=== PATIENT | male | born 1960 | race Caucasian/White ===

== ENCOUNTER 2023-03-21 16:30 | Outpatient (OUT) | payer OTHER, SELFPAY ==
--- NOTE | 2023-03-21 | XR_ITS ---
The [address] [address] Patient Name: ANA POTTER MRN: [id number] date: 1960 Sex: M Assigned Patient Location: LAB Current Patient Location: Accession/Order Number: [id number] Exam Date: 03/21/2023 17:15 Report Date: 03/22/2023 02:23 At the request of: SHAIKH FAUSTINA Procedure: XR foot RT min 3V PROCEDURE: XR foot RT min 3V HISTORY: M79.67 ; chronic lateral right foot pain, lump COMPARISON: None. FINDINGS: BONES:Transverse fracture through base of 5th metatarsal with 3 mm separation. Mild callus formation along the lateral margin. SOFT TISSUES:No visible soft tissue swelling. EFFUSION:None visible. OTHER: Negative. XR/XR foot RT min 3V IMPRESSION: 1. Acute versus subacute minimally displaced base of 5th metatarsal fracture. Electronically authenticated by: FELIPA SANTIAGO Date: 03/22/2023 02:23
[2023-03-21 17:09] LABS: Percent Iron Saturation 24.4 %
[2023-03-21 17:23] LABS: Prostate Specific Antigen Dx 3.98 ng/mL (<=4.00)
[2023-03-23 08:15] LABS: Transferrin 246 mg/dL (177-329)
== END 2023-03-21 16:31 | disposition home or self-care (01) ==
LOC: LAB 16:30
PROVIDERS: PCP Internal Medicine; Visit Provider Internal Medicine
DX: M79.671 Pain in right foot (principal); R97.20 Elevated prostate specific antigen [PSA]; S92.351A Displaced fracture of fifth metatarsal bone, right foot, initial encounter for closed fracture
CPT/HCPCS: 36415; 73630; 82607; 82728; 83540; 83550; 84153; 84466

== ENCOUNTER 2023-04-08 10:37 | Outpatient (OUT) | payer OTHER, SELFPAY ==
--- NOTE | 2023-04-08 | ECG_ITS ---
The [facility] Test Date: 2023-04-08 Pat Name: ANA POTTER Department: Room: - Gender: Male [employer]inery [employer] Out: : 1960 Requested By: IRIS PRINCE Order Number: [id number] Reading MD: JOSE C MARIEE Measurements Intervals [place] Rate: 108 P: 59 IA: 175 QRS: 43 QRSD: 94 T: 51 QT: 336 QTc: 452 Interpretive Statements SINUS TACHYCARDIA LOW QRS VOLTAGE IN PRECORDIAL LEADS [QRS DEFLECTION < 1.0 mV IN CHEST LEADS] NONSPECIFIC T-WAVE ABNORMALITY ABNORMAL RHYTHM ECG No previous ECG available for comparison Electronically Signed On 04-11-2023 17:25:40 EST by JOSE C MARIEE
--- OUTSIDE RECORDS SUMMARY | 2023-04-08 10:40 | XMS_ITS | CCD ---
Author Name Unknown Address [id number] [place] [address] Organization [facility] Care Team Providers Care Medical Technicians Name Role Phone MEAGAN HOLLAND Attending Unavailable GIULIANO, MEAGAN Referring Unavailable GIULIANO, MEAGAN Attending Unavailable GIULIANO, MEAGAN Referring Unavailable Angelia Barajas Unavailable [place], DR PRADO Consulting Unavailable [place], DR PRADO Primary Care Unavailable [place]AM[place], DR PRADO Admitting Unavailable [place], DR PRADO Attending Unavailable [facility], DR FELIPA Quinones Consulting Unavailable [place], DR PRADO Primary Care Unavailable [place], DR PRADO Admitting Unavailable [facility], DR SANJAY Millan Consulting Unavailable [place], DR PRADO Attending Unavailable [place], DR PRADO Consulting Unavailable [place], DR PRADO Primary Care Unavailable [place], DR PRADO Admitting Unavailable [place], DR PRADO Attending Unavailable [place], DR PRADO Consulting Unavailable SHAIKH WEEMS Attending Unavailable IRIS PRINCE Attending Unavailable IRIS PRINCE Referring Unavailable Problems Active Problems Problem Classification Problem Date Documented Da te Episodic/Chronic Diabetes mellitus without complication (1 source) Type 2 diabetes mellitus without complications; Translations: [TYPE 2 DM WITHOUT COMPLICATIONS] Onset: 04-08-2022 Chronic Genitourinary symptoms and ill-defined conditions (1 source) Frequency of micturition; Translations: [Frequency of micturition] Onset: 04-19-2018 Episodic Hyperplasia of prostate (1 source) Benign prostatic hyperplasia without lower urinary tract symptoms; Translations: [Benign prostatic hyperplasia without lower urinary tract symptoms] Onset: 04-19-2018 Chronic Other connective tissue disease (4 sources) Pain in left lower leg; Translations: [PAIN IN LEFT LOWER LEG] Onset: 03-22-2022 Episodic Other injuries and conditions due to external causes (1 source) Other injury of unspecified body region, initial encounter; Translations: [OTHER INJURY UNS BODY REGION INIT] Onset: 03-13-2022 Episodic Other non-traumatic joint disorders (1 source) Pain in left knee; Translations: [PAIN IN LEFT KNEE] Onset: 04-08-2022 Episodic Other non-traumatic joint disorders (1 source) Effusion, left knee; Translations: [EFFUSION LEFT KNEE] Onset: 04-08-2022 Episodic Other screening for suspected conditions (not mental disorders or infectious disease) (1 source) Elevated prostate specific antigen [PSA]; Translations: [Elevated prostate specific antigen (PSA)] Onset: 04-19-2018 Phlebitis; thrombophlebitis and thromboembolism (1 source) Embolism and thrombosis of superficial veins of left lower extremity; Translations: [EMBOLISM AND THROMB SUP VEINS LLE] Onset: 03-27-2022 Episodic Past or Other Problems Problem Classification Problem Date Documented Da te Episodic/Chronic Immunizations and screening for infectious disease (1 source) Contact with and (suspected) exposure to other viral communicable diseases Onset: 04-14-2021 Resolved: 04-14-2021 Episodic Results Test Name Value Interpretation Reference Range Facility GLYCOHEMOGLOBIN A1Con 2021 ADA RECOMMENDATION SEE BELOW Normal [facility] Comment on above: Result Comment: ADA RECOMMENDED LIMIT 4.0 - 6.0 ADA THERAPEUTIC TARGET < 7.0 ACTION SUGGESTED > 7.0 Performed By: #### A 1C #### [facility] [address] [place] [address] Dr. Kristy Villanueva Glucose [Mass/Vol] 151 mg/dL Normal [facility] Comment on above: Performed By: #### A 1C #### [facility] [address] [address] [address] Kristy Villanueva HbA1c (Bld) [Mass fraction] 6.9 % Critically high 4.5-6.2 [facility] Comment on above: Performed By: #### A 1C #### [facility] [address] [place] [address] Dr. Kristy Villanueva US JOSE DOP LEG LTon 03-22-20 US JOSE DOP LEG LT EXAMINATION: US JOSE DOP LEG LT HISTORY: Pain of left calf COMPARISON: No relevant comparison available. TECHNIQUE: Grayscale, color and Doppler ultrasound FINDINGS: Region: Left leg Thrombus: No deep vein thrombus. Echogenic thrombus identified in the superficial proximal to mid small saphenous vein Compressibility: Partial compressibility corresponding to thrombus Flow: Normal flow in the deep vein system Augmentation: Normal augmentation. Vein system Other: Popliteal fossa collection likely representing a popliteal cyst IMPRESSION: No deep vein thrombus Nonocclusive thrombus proximal to mid superficial small saphenous vein *Exam performed in accordance with [facility] practice guidelines- Peripheral venous ultrasound, July 05, 2009. Electronically authenticated by: SANJAY STANFORD Date: 2022-03-22 11:45 Normal [facility] LYME DISEASE AB EIA W REFLEX on 03-12-2022 Lyme Total Antibody,EIA Negative Normal Negative [facility] Comment on above: Result Comment: Lyme antibodies not detected. Reflex testing is not indicated. No laboratory evidence of infection with B. burgdorferi (Lyme disease). Negative results may occur in patients recently infected (less than or equal to 14 days) with B. burgdorferi. If recent infection is suspected, repeat testing on a new sample collected in 7 to 14 days is recommended. Performed By: #### L YMA #### [facility] [address] [place] [address] Dr. Kristy Villanueva CBC AUTO DIFFon 03-10-2022 BASO # 0.1 103/ul Normal 0.0-0.1 [facility] Comment on above: Performed By: #### C BC #### [facility] [address] [place] [address] Dr. Kristy Villanueva Basophils/100 WBC (Bld) 0.6 % Normal 0.2-2.0 [facility] Comment on above: Performed By: #### C BC #### [facility] [address] [place] [address] Dr. Kirsty Villanueva EO # 0.2 103/ul Normal 0.0-0.7 [facility] Comment on above: Performed By: #### C BC #### [facility] [address] [place] [address] Dr. Kristy Villanueva Eosinophils/100 WBC (Bld) 2.4 % Normal 0.9-7.0 [facility] Comment on above: Performed By: #### C BC #### [facility] [address] [place] [address] Dr. Kristy Villanueva Erythrocyte distribution width (RBC) [Ratio] 13.1 % Normal 11.0-15.0 [facility] Comment on above: Performed By: #### C BC #### [facility] [address] [place] [address] Dr. Kristy Villanueva Hematocrit (Bld) [Volume fraction] 44.4 % Normal 42.0-54.0 [facility] Comment on above: Performed By: #### C BC #### [facility] [address] [place] [address] Dr. Kristy Villanueva Hemoglobin (Bld) [Mass/Vol] 14.6 g/dL Normal 14.0-18.0 [facility] Comment on above: Performed By: #### C BC #### [facility] [address] [place] [address] Dr. Kristy Villanueva IG # 0.04 10e3/ul Critically high 0.00-0.03 [facility] Comment on above: Performed By: #### C BC #### [facility] [address] [place] [address] Dr. Kristy Villanueva IG % 0.5 % Normal 0.0-0.5 [facility] Comment on above: Performed By: #### C BC #### [facility] [address] [place] [address] Dr. Kristy Villanueva LYMPH # 2.1 103/ul Normal 1.2-3.8 [facility] Comment on above: Performed By: #### C BC #### [facility] [address] [place] [address] Dr. Kristy Villanueva Lymphocytes/100 WBC (Bld) 26.3 % Normal 20.5-60.0 [facility] Comment on above: Performed By: #### C BC #### [facility] [address] [place] [address] Dr. Kristy Villanueva MANUAL DIFF REQ NO Normal [facility] Comment on above: Performed By: #### C BC #### [facility] [address] [place] [address] Dr. Kristy Villanueva MCH (RBC) [Entitic mass] 28.6 pg Normal 25.9-34.0 [facility] Comment on above: Performed By: #### C BC #### [facility] [address] [place] [address] Dr. Kristy Villanueva MCHC (RBC) [Mass/Vol] 32.9 g/dL Normal 29.9-35.2 [facility] Comment on above: Performed By: #### C BC #### [facility] [address] [place] [address] Dr. Kristy Villanueva MCV (RBC) [Entitic vol] 87.1 fL Normal 80.0-94.0 [facility] Comment on above: Performed By: #### C BC #### [facility] [address] [place] [address] Dr. Kristy Villanueva MONO # 0.6 103/ul Normal 0.3-0.8 [facility] Comment on above: Performed By: #### C BC #### [facility] [address] [place] [address] Dr. Kristy Villanueva Monocytes/100 WBC (Bld) 7.6 % Normal 1.7-12.0 [facility] Comment on above: Performed By: #### C BC #### [facility] [address] [place] [address] Dr. Kristy Villanueva NEUT # 5.0 103/ul Normal 1.4-6.5 [facility] Comment on above: Performed By: #### C BC #### [facility] [address] [place] [address] Dr. Kristy Villanueva Neutrophils/100 WBC (Bld) 62.6 % Normal 43.0-75.0 [facility] Comment on above: Performed By: #### C BC #### [facility] [address] [place] [address] Dr. Kristy Villanueva Platelet mean volume (Bld) [Entitic vol] 9.2 fL Critically low 9.5-13.5 [facility] Comment on above: Performed By: #### C BC #### [facility] [address] [place] [address] Dr. Kristy Villanueva PLT 347 103/ul Normal 150-450 [facility] Comment on above: Performed By: #### C BC #### [facility] [address] [address] [address] Kristy Villanueva RBC 5.10 106/ul Normal 4.70-6.10 [facility] Comment on above: Performed By: #### C BC #### [facility] [address] [address] [address] Kristy Villanueva WBC 8.0 103/ul Normal 4.0-11.0 [facility] Comment on above: Performed By: #### C BC #### [facility] [address] [place] [address] Dr. Kristy Villanueva LIPID PROFILEon 03-10-2022 CHOL-HDL RATIO NORM SEE BELOW Normal [facility] Comment on above: Result Comment: 3.3 - 4.4 LOW RISK 4.4 - 7.1 AVERAGE RISK 7.1 - 11.0 MODERATE RISK >11.0 HIGH RISK Performed By: #### C MP, LIPID #### [facility] [address] [place] [address] Dr. Kristy Villanueva Cholesterol [Mass/Vol] 219 mg/dL Critically high <=200 [facility] Comment on above: Performed By: #### C MP, LIPID #### [facility] [address] [place] [address] Dr. Kristy Villanueva Cholesterol in HDL [Mass/Vol] 56 mg/dL Normal 40-60 [facility] Comment on above: Performed By: #### C MP, LIPID #### [facility] [address] [place] [address] Dr. Kristy Villanueva Cholesterol in LDL [Mass/Vol] 138.4 mg/dL Normal [facility] Comment on above: Performed By: #### C MP, LIPID #### [facility] [address] [place] [address] Dr. Kristy Villanueva Cholesterol.total/ Cholesterol in HDL [Mass ratio] 3.9 {ratio} Normal [facility] Comment on above: Performed By: #### C MP, LIPID #### [facility] [address] [place] [address] Dr. rKisty Villanueva HDL NORMAL > or = 60 mg/dl - LO W CARDIOVASCULAR RISK <40 mg/dl - HIGH CARDIOVASCULAR RISK Normal [facility] Comment on above: Performed By: #### C MP, LIPID #### [facility] [address] [address] [address] Kristy Villanueva LDL CALC NORMAL SEE BELOW Normal [facility] Comment on above: Result Comment: <100 mg/dl OPTIMAL 100 - 129 mg/dl NEAR OR ABOVE OPTIMAL 130 - 159 mg/dl BORDERLINE HIGH 160 - 189 mg/dl HIGH >190 mg/dl VERY HIGH Performed By: #### C MP, LIPID #### [facility] [address] [address] [address] Kristy Villanueva Triglyceride [Mass/Vol] 123 mg/dL Normal <=150 [facility] Comment on above: Performed By: #### C MP, LIPID #### [facility] [address] [address] [address] Kristy Villanueva VLDL CALC 24.6 mg/dL Normal [facility] Comment on above: Performed By: #### C MP, LIPID #### [facility] [address] [address] [address] Kristy Villanueva PROF 14(COMP METB)on 022 Albumin [Mass/Vol] 3.9 g/dL Normal 3.4-5.0 [facility] Comment on above: Performed By: #### C MP, LIPID #### [facility] [address] [address] [address] Kristy Villanueva Albumin/Globulin [Mass ratio] 1.1 {ratio} Normal [facility] Comment on above: Performed By: #### C MP, LIPID #### [facility] [address] [address] [address] Kristy Villanueva ALP [Catalytic activity/Vol] 85 U/L Normal 46-116 [facility] Comment on above: Performed By: #### C MP, LIPID #### [facility] [address] [address] [address] Kristy Villanueva ALT [Catalytic activity/Vol] 26 U/L Normal 16-63 [facility] Comment on above: Performed By: #### C MP, LIPID #### [facility] [address] [address] [address] Kristy Villanueva Anion gap [Moles/Vol] 12.5 mmol/L Normal [facility] Comment on above: Performed By: #### C MP, LIPID #### [facility] [address] [address] [address] Kristy Villanueva AST [Catalytic activity/Vol] 13 U/L Critically low 15-37 [facility] Comment on above: Performed By: #### C MP, LIPID #### [facility] [address] [address] [address] Kristy Villanueva Bilirubin [Mass/Vol] 0.4 mg/dL Normal 0.2-1.0 [facility] Comment on above: Performed By: #### C MP, LIPID #### [facility] [address] [address] [address] Kristy Villanueva Calcium [Mass/Vol] 9.3 mg/dL Normal 8.5-10.1 [facility] Comment on above: Performed By: #### C MP, LIPID #### [facility] [address] [address] [address] Kristy Villanueva Chloride [Moles/Vol] 100 mmol/L Normal 98-107 [facility] Comment on above: Performed By: #### C MP, LIPID #### [facility] [address] [address] [address] Kristy Villanueva CO2 [Moles/Vol] 28.7 mmol/L Normal 21.0-32.[address] [facility] Comment on above: Performed By: #### C MP, LIPID #### [facility] [address] [address] [address] Kristy Villanueva Creatinine [Mass/Vol] 1.06 mg/dL Normal 0.70-1.30 [facility] Comment on above: Performed By: #### C MP, LIPID #### [facility] [address] [address] [address] Kristy Villanueva EGFR-AF SLOVAK >60 Normal >=[address] [facility] Comment on above: Performed By: #### C MP, LIPID #### [facility] [address] [address] [address] Kristy Villanueva EGFR-NON AF [place] >60 Normal >=60 [facility] Comment on above: Performed By: #### C MP, LIPID #### [facility] [address] [address] [address] Kristy Villanueva Globulin (S) [Mass/Vol] 3.4 g/dL Normal [facility] Comment on above: Performed By: #### C MP, LIPID #### [facility] [address] [address] [address] Kristy Villanueva Glucose [Mass/Vol] 111 mg/dL Critically high 74-106 [facility] Comment on above: Performed By: #### C MP, LIPID #### [facility] [address] [address] [address] Kristy Villanueva Potassium [Moles/Vol] 4.2 mmol/L Normal 3.5-5.1 [facility] Comment on above: Performed By: #### C MP, LIPID #### [facility] [address] [address] [address] Kristy Villanueva Protein [Mass/Vol] 7.3 g/dL Normal 6.4-8.2 [facility] Comment on above: Performed By: #### C MP, LIPID #### [facility] [address] [address] [address] Kristy Villanueva Sodium [Moles/Vol] 137 mmol/L Normal 136-145 [facility] Comment on above: Performed By: #### C MP, LIPID #### [facility] [address] [address] [address] Kristy Villanueva Urea nitrogen [Mass/Vol] 24.0 mg/dL Critically high 7.0-18.0 [facility] Comment on above: Performed By: #### C MP, LIPID #### [facility] [address] [address] [address] Kristy Villanueva Urea nitrogen/Creatinin e [Mass ratio] 22.6 mg/mg Normal [facility] Comment on above: Performed By: #### C MP, LIPID #### [facility] [address] [place] [address] Dr. Kristy ADAM Quick Testingon 2021 Result Positive [employer] Other Alf Documentson 07-28-2020 [employer] [id number] Normal [facility] CNOVon 05-11-2018 CNOV Office Visit (UROLLN ) -- ANA CHAHAL ([id number]) 1960 M Date Time Provider Department 05/11/18 10:00 AM MEAGAN HOLLAND During your visit today, we recorded the following information about you: Pulse Blood pressure Weight 68/minute 164/99 104.3 kg Chayo Tanner 05/11/2018 10:50 AM Signed PRE PROCEDURE NURSE ASSESSMENT Patient ID with two(2)identifiers verified by: Chayo Tanner Procedure Indication: Cystoscopy May 11, 2018, Time In: Latex Allergy: No Allergies reviewed and updated. No Pre-Procedure Vital Signs: BP: 164/99 Pulse: 68 Heart valve replacement: No Joint replacement: No Back Office UA otained: no Pre-Procedure Antibiotics: Levaquin 750 mg orally, given during visit @ 0950 , by Chayo Tanner Rn Current pain intensity is 0 on a 0-10 pain scale. Patient Prep: Betadine Scrub to perineum and placement of Sterile Drape. COMPLETED Anesthetic Given:10 cc 2% Lidocaine jelly Chayo Tanner UNIVERSAL PROTOCOL / SAFETY CHECKLIST Procedure to be performed: Cystoscopy Sign in Communication: Completed Time Out: Team Confirms the Correct Patient, Correct Procedure, Correct Site and Site Marking, Correct Position (if applicable) Sign Out Discussion: Completed Chayo Tanner POST PROCEDURE NURSE ASSESSMENT Procedure/Indication: Cystoscopy Instruction sheet given and reviewed and patient verbalizes understanding: yes Post-Procedure Vital Signs: BP: 173/102 Pulse: 72 Patient informed his BP is very elevated and instructed to contact his PCP, verbalized understanding Post Procedure Antibiotic: prescribed Current pain intensity is rated at 6 on a 0-10 scale. Location: rectum Chayo Tanner AMBULATORY PATIENT EDUCATION THE FOLLOWING WAS EVALUATED Motivation To Learn: Interested Family/Significant Other Support: None - Unavailable/disinterested Cognitive Ability: Alert/Oriented Method of Instruction: Written instruction - handouts The Following Influencing Factors Were Barriers To This Education Session: None The Following Physical Limitations Were Barriers To This Education Session: None Instruction Provided To: Patient Area Plant Manager Present: not applicable Discipline: Nursing Learning Topic: SURVIVAL SKILLS: Complication Prevention Symptom Management Patient Evaluation: Verbalizes understanding: Yes Supplemental Material Given: Written Material Instructed By Chayo Tanner In Department Urology . Meagan Holland MD 05/11/2018 10:55 AM Signed . Meagan Holland MD 05/11/2018 10:55 AM Signed PROCEDURE: -Prostate biopsy -Ultrasound guidance for needle biopsy -Echo exam transrectal Preoperative diagnosis: Elevated PSA Postoperative diagnosis: Elevated PSA Surgeon:MEAGAN HOLLAND M.D. Anesthesia: Periprostatic nerve block PREOPERATIVE/PROCEDURAL VERIFICATION: Patient verified by name: Yes Procedure to be performed: PROSTATE BIOPSY Site of the procedure confirmed: Yes Site: PROSTATE History and physical exam reviewed and is unchanged Reviewed patient allergies:Yes PROCEDURAL TIME OUT: Time out verification:Yes Prophylactic antibiotics oral and im were administered Informed consent discussion:yes Patient was placed in left lateral decubitus posion PSA (ng/mL) 5.29 PSA DENSITY: 0.14 PALPABLE NODULE: No Transrectal ultrasound probe was placed in the rectum. Imaging in both transverse and longitudinal views were obtained Prostate needle biopsies were taken using ultrasound guidance Number of random prostate biopsies obtained were (12) 1.) RIGHT BASE: 3 2.) RIGHT MID: 2 3.) RIGHT APEX: 1 4.) LEFT BASE: 3 5.) LEFT MID: 2 6.) LEFT APEX: 1 7.) RSV: No 8.) LSV: No MEDICATIONS: LEVAQUIN tablet oral and GENTAMICIN -IM ANESTHESIA: Nerve block:10 ml 1% Plain Xylocaine periprostatic nerve block given: YES :RIGHT SIDE PROSTATE ULTRASOUND TRANSRECTAL: The prostate sonogram was obtained via transrectal approach. The gland is slightly enlarged, measuring: H 35.96 mm W 52.52 mm L 39.57 mm. Vol. 39.09 cc. There is a homogeneous echo pattern throughout the prostate gland. Echogenic foci within the gland consistant with clacifications were noted. There is no focal lesion within the pereferal zone of the prostate gland. The patient tolerated the procedure well. Post procedure instructions were given to the patient. Meagan Holland MD Referring Provider: MEAGAN HOLLAND [[id number]] Allergies As of Date: 05/11/2018 (No Known Allergies) Date Reviewed: 05/11/2018 Reviewed by: Meagan Holland - Fully Assessed Reason for Visit: Prostate Biopsy [371] Primary Visit Diagnosis:Elevated prostate specific antigen (PSA) [R97.20] Order(s): PROSTATE BIOPSY (POC) GUKI USE ONLY [[id number]] Order #: [id number]: 1 ciprofloxacin HCl (CIPRO) 500 mg tabletTake 1 tablet by mouth twice daily.Disp: 14 tabletRfl: 0 SURGICAL PATHOLOGY [[id number]] Order #: [id number] Prescriptions as of 05/11/2018 Sig: LISINOPRIL 20 MG TABLET METFORMIN 500 MG TABLET CIPROFLOXACIN 500 MG TABLET Take 1 tablet by mouth twice * Problem List As Of Date 05/11/2018 Noted Resolved Elevated prostate specific antigen (PSA) [R97.2*INVALID FOR* BPH without urinary obstruction [N40.0] INVALID FOR* Frequency of micturition [R35.0] INVALID FOR* Visit Notes: >> Chayo Tanner [facility] May 11, 2018 10:04 AM Status: Signed PRE PROCEDURE NURSE ASSESSMENT Patient ID with two(2)identifiers verified by: Chayo Tanner Procedure Indication: Cystoscopy May 11, 2018, Time In: Latex Allergy: No Allergies reviewed and updated. No Pre-Procedure Vital Signs: BP: 164/99 Pulse: 68 Heart valve replacement: No Joint replacement: No Back Office UA otained: no Pre-Procedure Antibiotics: Levaquin 750 mg orally, given during visit @ 0950 , by Chayo Tanner Rn Current pain intensity is 0 on a 0-10 pain scale. Patient Prep: Betadine Scrub to perineum and placement of Sterile Drape. COMPLETED Anesthetic Given:10 cc 2% Lidocaine jelly Chayo Tanner UNIVERSAL PROTOCOL / SAFETY CHECKLIST Procedure to be performed: Cystoscopy Sign in Communication: Completed Time Out: Team Confirms the Correct Patient, Correct Procedure, Correct Site and Site Marking, Correct Position (if applicable) Sign Out Discussion: Completed Chayo Tanner POST PROCEDURE NURSE ASSESSMENT Procedure/Indication: Cystoscopy Instruction sheet given and reviewed and patient verbalizes understanding: yes Post-Procedure Vital Signs: BP: 173/102 Pulse: 72 Patient informed his BP is very elevated and instructed to contact his PCP, verbalized understanding Post Procedure Antibiotic: prescribed Current pain intensity is rated at 6 on a 0-10 scale. Location: [facility] AMBULATORY PATIENT EDUCATION THE FOLLOWING WAS EVALUATED Motivation To Learn: Interested Family/Significant Other Support: None - Unavailable/disinterested Cognitive Ability: Alert/Oriented Method of Instruction: Written instruction - handouts The Following Influencing Factors Were Barriers To This Education Session: None The Following Physical Limitations Were Barriers To This Education Session: None Instruction Provided To: Patient Area Plant Manager Present: not applicable Discipline: Nursing Learning Topic: SURVIVAL SKILLS: Complication Prevention Symptom Management Patient Evaluation: Verbalizes understanding: Yes Supplemental Material Given: Written Material Instructed By Chayo Tanner In Department Urology . Prescriptions ordered this encounter Disp Refills Start End CIPROFLOXACIN 500 MG TABLET 14 t* 0 05/11/2018 Route: ORAL Sig: Take 1 tablet by mouth twice daily. Follow-up and Disposition History Recorded Encounter Status:Closed by MEAGAN HOLLAND MD on 05/11/18 [facility] PROCEDUREon 05-11-2018 Protein mass conc HNO ID: [id number] Author: Meagan Holland Service: (none) Author Type: Physician Type: Procedures Filed: 05/11/2018 10:55 AM Note Text: PROCEDURE: -Prostate biopsy -Ultrasound guidance for needle biopsy -Echo exam transrectal Preoperative diagnosis: Elevated PSA Postoperative diagnosis: Elevated PSA Surgeon:MEAGAN HOLLAND M.D. Anesthesia: Periprostatic nerve block PREOPERATIVE/PROCEDURAL VERIFICATION: Patient verified by name: Yes Procedure to be performed: PROSTATE BIOPSY Site of the procedure confirmed: Yes Site: PROSTATE History and physical exam reviewed and is unchanged Reviewed patient allergies:Yes PROCEDURAL TIME OUT: Time out verification:Yes Prophylactic antibiotics oral and im were administered Informed consent discussion:yes Patient was placed in left lateral decubitus posion PSA (ng/mL) 5.29 PSA DENSITY: 0.14 PALPABLE NODULE: No Transrectal ultrasound probe was placed in the rectum. Imaging in both transverse and longitudinal views were obtained Prostate needle biopsies were taken using ultrasound guidance Number of random prostate biopsies obtained were (12) 1.) RIGHT BASE: 3 2.) RIGHT MID: 2 3.) RIGHT APEX: 1 4.) LEFT BASE: 3 5.) LEFT MID: 2 6.) LEFT APEX: 1 7.) RSV: No 8.) LSV: No MEDICATIONS: LEVAQUIN tablet oral and GENTAMICIN -IM ANESTHESIA: Nerve block:10 ml 1% Plain Xylocaine periprostatic nerve block given: YES :RIGHT SIDE PROSTATE ULTRASOUND TRANSRECTAL: The prostate sonogram was obtained via transrectal approach. The gland is slightly enlarged, measuring: H 35.96 mm W 52.52 mm L 39.57 mm. Vol. 39.09 cc. There is a homogeneous echo pattern throughout the prostate gland. Echogenic foci within the gland consistant with clacifications were noted. There is no focal lesion within the pereferal zone of the prostate gland. The patient tolerated the procedure well. Post procedure instructions were given to the patient. Meagan Holland MD Normal [facility] PROGRESSon 05-11-2018 Protein mass conc HNO ID: [id number] Author: Meagan Holland Service: (none) Author Type: Physician Type: Progress Notes Filed: 05/11/2018 10:55 AM Note Text: . Normal [facility] SURGICAL PATHOLOGYon 019 SURGICAL PATHOLOGY Specimen originated from [facility] Specimen #: [id number] Submitting Physician: MEAGAN HOLLNAD ([id number]) FINAL DIAGNOSIS 1. Prostate, right base, needle biopsy (A) - Benign prostatic tissue. 2. Prostate, right mid, needle biopsy (B) - Benign prostatic tissue. 3. Prostate, right apex, needle biopsy (C) - Benign prostatic tissue. 4. Prostate, left base, needle biopsy (D) - Benign prostatic tissue. 5. Prostate, left mid, needle biopsy (E) - Benign prostatic tissue. 6. Prostate, left apex, needle biopsy (F) - Benign prostatic tissue. JKM/tomer05/15/18 Brant Benavidez M.D. (Electronic Signature) SPECIMEN SUBMITTED A: RIGHT BASE X3 PROSTATE, BIOPSY B: RIGHT MIDDLE X2 PROSTATE, BIOPSY C: RIGHT APEX X1 PROSTATE, BIOPSY D: LEFT BASE X3 PROSTATE, BIOPSY E: LEFT MIDLLE X2 PROSTATE, BIOPSY F: LEFT APEX X1 PROSTATE, BIOPSY CLINICAL DATA elevated PSA GROSS DESCRIPTION A. Received in formalin on Telfa gauze are four segments of cylindrical tissue ranging in length from 0.6-1.8 cm and averaging 0.1 cm in diameter, patel and of a soft and friable consistency. A portion of one core may not survive processing. Totally submitted in formalin in two cassettes. B. Received in formalin on Telfa gauze are two segments of cylindrical tissue ranging in length from 1.2-1.7 cm and averaging 0.1 cm in diameter, patel and of a soft and friable consistency. A portion of one core may not survive processing. Totally submitted in formalin in one cassette. C. Received in formalin on Telfa gauze is one cylindrical tissue measuring 1.5 x 0.1 x0.1 cm, patel and of a soft and friable consistency. A portion of one core may not survive processing. Totally submitted in formalin in one cassette. D. Received in formalin on Telfa gauze are three segments of cylindrical tissue ranging in length from 1.0-1.5 cm and averaging 0.1 cm in diameter, patel and of a soft and friable consistency. A portion of one core may not survive processing. Totally submitted in formalin in two cassettes. E. Received in formalin on Telfa gauze are two segments of cylindrical tissue ranging in length from 1.4-1.7 cm and averaging 0.1 cm in diameter, patel and of a soft and friable consistency. A portion of one core may not survive processing. Totally submitted in formalin in one cassette. F. Received in formalin on Telfa gauze is one cylindrical tissue measuring 1.5 x 0.1 x0.1 cm, patel and of a soft and friable consistency. A portion of one core may not survive processing. Totally submitted in formalin in one cassette. Gross examination performed at [facility], [address] [place] [address] 05/11/2018 10:14:23 PM Date of Report: 05/15/2018 Date of Procedure: 05/11/2018 Date of Receipt: 05/11/2018 Submitted by: MEAGAN HOLLAND ([id number]) Location: [facility] UROL Diagnostic interpretation performed at [facility], [address] [place] [address]. Normal [facility] PROGRESSon 05-05-2018 Protein mass conc HNO ID: [id number] Author: Meagan Holland Service: (none) Author Type: Physician Type: Progress Notes Filed: 05/05/2018 8:13 AM Note Text: for prostate bx elevated psa Good stream of urine in a 25 gm prostate frequency nocturia x 1 ? PSA 02-23-17 = 1.92 PSA 18 = 6.42 PSA 04-26-18 0.00 - 2.59 ng/mL 5.29 Normal [facility] CNPNon 04-26-2018 CNPN Telephone (AVPRAD) -- ANA CHAHAL ([id number]) 1960 M Date Time Provider Department 04/26/18 MEAGAN HOLLAND During your visit today, we recorded the following information about you: Meagan Holland MD 04/26/2018 11:14 PM Signed please notify patient of his psa result 5.29 to schedule prostate bx in office local to rule out prostate cancer to pickup prostate bx flyer BM day prior BX MD Magy Morgan RN 04/27/2018 10:06 AM Signed Call placed to the patient. No answer. Message left for the patient to return the call. Magy Davenport Psr 04/27/2018 11:12 AM Signed Patient returned call and was informed of below Patient requesting to speak with nurse and may be reached at [phone] Magy Noriega RN 04/27/2018 11:23 AM Signed Call returned to the patient. He was given the below message. All questions answered. Understanding verbalized. Call was transferred to the production control scheduler for his appointment to be scheduled. Pamphlet mailed to the patient. SRIKANTH White RN Psr 04/27/2018 11:43 AM Signed Patient is currently scheduled for his prostate Bx on 05/11/2018 with the provider. Natalee Contreras Psr 04/27/2018 3:13 PM Signed Called patient left message to return call to office, ext [phone], to schedule 1 week follow up with Dr Holland after his procedure on 05-11-18. Maura Roa Psr 04/28/2018 1:39 PM Signed Patient returning call to [facility] to schedule. Unable to reach ext. Please call at [phone]. Psr Delmy Morton 04/28/2018 3:11 PM Signed Called patient and left message on voice mail for patient to call back at ext [phone] to schedule one week follow up after biopsy Allergies As of Date: 04/26/2018 (No Known Allergies) Date Reviewed: 04/19/2018 Reviewed by: Rosalina Cameron MA - Fully Assessed Reason for Visit: Results [95] Prescriptions as of 04/26/2018 Sig: LISINOPRIL 20 MG TABLET METFORMIN 500 MG TABLET Problem List As Of Date 04/26/2018 Noted Resolved Elevated prostate specific antigen (PSA) [R97.2*INVALID FOR* BPH without urinary obstruction [N40.0] INVALID FOR* Frequency of micturition [R35.0] INVALID FOR* Encounter Status:Closed by FREEDOM FONSECA on 04/27/18 Normal [facility] PSA, [facility] 04-26-2018 PSA, Diagnostic 5.29 ng/mL High 0.00-2.59 [facility] Comment on above: Result Comment: Eleazar back PSA test methodology used is the Electrochemiluminescence Immunoassay. For an individual patient, the significance of a PSA level should be interpreted in a broad clinical context, including age, race, family history, digital rectal exam, prostate size, results of prior testing (prostate biopsy, free PSA, PCA3), and use of 5-alpha reductase inhibitors. Considering the high incidence of asymptomatic cancer in the general population that may not pose an ultimate risk to a patient, the decision to recommend urological evaluation or prostate biopsy should be individualized after consideration of all these factors. REFERENCE: Gianna Ahumada M.D., M.P.H., Josias Camacho M.D., Ph.D., Jaiden Walton M.D., Zahida De La Cruz, M.P.H., Teena Leblanc Sc.D. Effect of Verification Bias on Screening for Prostate Cancer by Measurement of Prostatic Specific Antigen. N Engl J Med 2003,349:335-42. Performed By: #### P SA #### [facility] [address] [address] CNOVon 04-19-2018 CNOV Office Visit (UROLAV ) -- ANA CHAHAL ([id number]) 1960 M Date Time Provider Department 04/19/18 1:30 PM MEAGAN HOLLAND UROSTANISLAV During your visit today, we recorded the following information about you: Temperature Pulse Blood pressure Weight 98 degrees 78/minute 168/89 104.3 kg Meagan Holland MD 04/19/2018 2:01 PM Signed Ana Billy Fela [address] [facility] [address] is a 57 year old male and is here today at the request of SELF. My final recommendation will be communicated back to the requesting physician by way of shared medical record or letter. Mr. Chahal presents with chief complaints of: elevated psa Good stream of urine frequency nocturia x 1 PSA 17 = 1.92 PSA 03-09-18 = 6.42 HISTORY OF PRESENT ILLNESS: ? Location: blood ? Pain Character: none ? Severity Scale: see lab ? Duration: 2 months ? Timing: N/A ? Modifying Factors: N/A ? Associated signs and symptoms: N/A No past medical history on file. No past surgical history on file. No family history on file. Social History Substance Use Topics - Smoking status: Not on file - Smokeless tobacco: Not on file - Alcohol use Not on file MEDICATIONS: No current outpatient prescriptions on file. No current facility-administered medications for this visit. ALLERGY: ALLERGIES Not on File ====== REVIEW OF SYSTEMS ====== GENERAL: No fever, no fatigue and no weight loss. HEAD AND NECK: No headache, no blurred vision and no hearing loss. CARDIOVASCULAR: No chest pain, no palpitations and no leg edema. RESPIRATORY: No cough, wheezing and no shortness of breath. : As indicated in HPI. GI: No epigastric discomfort, no blood in stool and no changes in bowel habits. MUSCLOSKELETAL: No neck pain, no back anin and no joint pain. SKIN: No varicose veins, no rash and no abnormal itching. NEUROLOGICAL: No numbness, no seizures and no tremor. BLOOD: No ekimosis, no hematomas or no bleeding from the gums. ===== PHYSICAL EXAM: ===== VITALS: There were no vitals taken for this visit. GENERAL: Alert, oriented and in no distress. HEAD: Conjuctiva: no palor Sclera: no jaundice NECK: No enlarged thyroid, no palpable lymph nodes, and no engorged neck veins. HEART: Regular, no pericardial rub CHEST: Bilateral symetrical, no crepitations. ABDOMEN: Soft, non tender with no masses or organomegaly. No CVA tenderness. HERNIA: Negative EXTREMITIES: No leg edema, No joint swelling GENITALIA: Penis:no lesions, masses, or deformities. Urethral meatus: normal size, no discharge Scrotum: no lesions, cysts, rashes. Testes : Normal Epididymes: Normal Hydroceles: None Spermatoceles: None Varicoceles: None URO REC EX Anus and perineum wnl. No hemorrhoids Sphincter tone normal, no mass. Prostate: size (25 grams), symmetrical, nontender, w/o nodules. IMPRESSION: (Diagnostic Possibilities): Elevated PSA 6.42 BPH without obstruction Urinary frequency PLAN: (Management Options): repeat PSA next week and call for result bx if abnormal MD Meagan Morgan MD 04/19/2018 1:59 PM Signed Elevated PSA Discussed with the patient about the different etiologies for elevated PSA including: BPH, prostate inflammation, prostate infection, prostate cancer among others. We spoke about a prostate biopsy versus office follow up with PSA .The risks and benefits of prostate biopsy was discussed. [facility]; [facility] TRUS BIOPSY A transrectal ultrasound and prostate biopsy (TRUS biopsy) is a procedure that allows a doctor to examine your prostate gland by using ultrasound waves. The ultrasound probe is inserted a short distance into the rectum and biopsies can be performed with a thin needle that passes through this probe. This procedure takes 10-20 minutes and causes minimal discomfort. SPECIAL INSTRUCTIONS BEFORE THE PROCEDURE You can take all your medications prior the procedure except for blood thinning medications. The procedure cannot be performed while you are taking blood thinners (Coumadin, Persantine,plavix or other blood thinning medications). Contact your physician who prescribed blood thinning medications to obtain permission to stop them prior the procedure. Please do not stop those medications without prior notice from us or your physician. You may resume your blood thinning medication when your urine is clear of blood. Take the antibiotics prescribed to you the evening prior your procedure. You should also have a bowel movement the morning of the procedure. Intravenous antibiotics may be recommended prior to your procedure depending on your medical history. With the exception of the medications listed above, you may take your prescriptions as previously directed. WHAT TO EXPECT AFTER YOUR PROSTATE BIOPSY *A small amount of blood may be noted in your urine that lasts for few days to few weeks, blood in the semen that may last for few weeks but occasionally up to 3 months , and/or blood in the stool that may last for a day or two. *Resume normal activity and medications (avoid aspirin for 3 days). *Drink 6-8 glasses of fluid each day for 3 days to help flush your urinary system. *Soak in a warm tub bath for 20 minutes if you experience rectal soreness. WHEN TO CALL THE DOCTOR *If you have a fever over 100* Fahrenheit. *If you are unable to urinate. *If clots form in your urine. *If your urine becomes very bloody and does not clear with drinking extra fluids. Meagan Holland M.D. Referring Provider: SELF [200] Allergies As of Date: 04/19/2018 (No Known Allergies) Date Reviewed: 04/19/2018 Reviewed by: Rosalina Cameron MA - Fully Assessed Reason for Visit: Consult [173] Primary Visit Diagnosis:Elevated prostate specific antigen (PSA) [R97.20] Other Visit Diagnoses:BPH without urinary obstruction [N40.0] Frequency of micturition [R35.0] Order(s):PSA/PROSTSPECAG DIAG [SQPSA] Order #: [id number] FUTURE Prescriptions as of 04/19/2018 Sig: LISINOPRIL 20 MG TABLET METFORMIN 500 MG TABLET Problem List As Of Date 04/19/2018 Noted Resolved Elevated prostate specific antigen (PSA) [R97.2*INVALID FOR* BPH without urinary obstruction [N40.0] INVALID FOR* Frequency of micturition [R35.0] INVALID FOR* Other instructions from your clinician: Elevated PSA Discussed with the patient about the different etiologies for elevated PSA including: BPH, prostate inflammation, prostate infection, prostate cancer among others. We spoke about a prostate biopsy versus office follow up with PSA .The risks and benefits of prostate biopsy was discussed. [facility]; [facility] TRUS BIOPSY A transrectal ultrasound and prostate biopsy (TRUS biopsy) is a procedure that allows a doctor to examine your prostate gland by using ultrasound waves. The ultrasound probe is inserted a short distance into the rectum and biopsies can be performed with a thin needle that passes through this probe. This procedure takes 10-20 minutes and causes minimal discomfort. SPECIAL INSTRUCTIONS BEFORE THE PROCEDURE You can take all your medications prior the procedure except for blood thinning medications. The procedure cannot be performed while you are taking blood thinners (Coumadin, Persantine,plavix or other blood thinning medications). Contact your physician who prescribed blood thinning medications to obtain permission to stop them prior the procedure. Please do not stop those medications without prior notice from us or your physician. You may resume your blood thinning medication when your urine is clear of blood. Take the antibiotics prescribed to you the evening prior your procedure. You should also have a bowel movement the morning of the procedure. Intravenous antibiotics may be recommended prior to your procedure depending on your medical history. With the exception of the medications listed above, you may take your prescriptions as previously directed. WHAT TO EXPECT AFTER YOUR PROSTATE BIOPSY *A small amount of blood may be noted in your urine that lasts for few days to few weeks, blood in the semen that may last for few weeks but occasionally up to 3 months , and/or blood in the stool that may last for a day or two. *Resume normal activity and medications (avoid aspirin for 3 days). *Drink 6-8 glasses of fluid each day for 3 days to help flush your urinary system. *Soak in a warm tub bath for 20 minutes if you experience rectal soreness. WHEN TO CALL THE DOCTOR *If you have a fever over 100* Fahrenheit. *If you are unable to urinate. *If clots form in your urine. *If your urine becomes very bloody and does not clear with drinking extra fluids. Meagan Holland M.D. Follow-up and Disposition History Recorded Encounter Status:Closed by MEAGAN HOLLAND MD on 04/19/18 [facility] PROGRESSon 04-19-2018 Protein mass conc HNO ID: [id number] Author: Meagan Holland Service: (none) Author Type: Physician Type: Progress Notes Filed: 04/19/2018 2:01 PM Note Text: Ana Chahal [address] [facility] [address] is a 57 year old male and is here today at the request of SELF. My final recommendation will be communicated back to the requesting physician by way of shared medical record or letter. Mr. Chahal presents with chief complaints of: elevated psa Good stream of urine frequency nocturia x 1 PSA 17 = 1.92 PSA 18 = 6.42 HISTORY OF PRESENT ILLNESS: ? Location: blood ? Pain Character: none ? Severity Scale: see lab ? Duration: 2 months ? Timing: N/A ? Modifying Factors: N/A ? Associated signs and symptoms: N/A No past medical history on file. No past surgical history on file. No family history on file. Social History Substance Use Topics - Smoking status: Not on file - Smokeless tobacco: Not on file - Alcohol use Not on file MEDICATIONS: No current outpatient prescriptions on file. No current facility-administered medications for this visit. ALLERGY: ALLERGIES Not on File ====== REVIEW OF SYSTEMS ====== GENERAL: No fever, no fatigue and no weight loss. HEAD AND NECK: No headache, no blurred vision and no hearing loss. CARDIOVASCULAR: No chest pain, no palpitations and no leg edema. RESPIRATORY: No cough, wheezing and no shortness of breath. : As indicated in HPI. GI: No epigastric discomfort, no blood in stool and no changes in bowel habits. MUSCLOSKELETAL: No neck pain, no back anin and no joint pain. SKIN: No varicose veins, no rash and no abnormal itching. NEUROLOGICAL: No numbness, no seizures and no tremor. BLOOD: No ekimosis, no hematomas or no bleeding from the gums. ===== PHYSICAL EXAM: ===== VITALS: There were no vitals taken for this visit. GENERAL: Alert, oriented and in no distress. HEAD: Conjuctiva: no palor Sclera: no jaundice NECK: No enlarged thyroid, no palpable lymph nodes, and no engorged neck veins. HEART: Regular, no pericardial rub CHEST: Bilateral symetrical, no crepitations. ABDOMEN: Soft, non tender with no masses or organomegaly. No CVA tenderness. HERNIA: Negative EXTREMITIES: No leg edema, No joint swelling GENITALIA: Penis:no lesions, masses, or deformities. Urethral meatus: normal size, no discharge Scrotum: no lesions, cysts, rashes. Testes : Normal Epididymes: Normal Hydroceles: None Spermatoceles: None Varicoceles: None URO REC EX Anus and perineum wnl. No hemorrhoids Sphincter tone normal, no mass. Prostate: size (25 grams), symmetrical, nontender, w/o nodules. IMPRESSION: (Diagnostic Possibilities): Elevated PSA 6.42 BPH without obstruction Urinary frequency PLAN: (Management Options): repeat PSA next week and call for result bx if abnormal Meagan Holland MD Normal [facility] Encounters Encounter Date Encounter Type Care Provider Facility Start: 04-05-2023 End: 04-05-2023 ambulatory ISBELL FAUSTINA Not Available Start: 03-24-2023 End: 03-24-2023 ambulatory IRIS PRINCE Not Available Start: 04-08-2022 Encounter for genera l adult medical examination without abnormal findings DR EVE LOPEZ [facility] Start: 03-31-2022 End: 04-01-[address] EVE LOPEZ Facility:[facility] Start: 03-31-2022 End: 04-01-2022 Encounter for general adult medical examination without abnormal findings DR EVE LOPEZ Facility:[facility] Start: 03-22-2022 End: 03-23-[address] EVE LOPEZ Facility:[facility] Start: 03-10-2022 End: 03-11-[address] EVE LOPEZ Facility:[facility] Start: 04-14-2021 End: 04-14-2021 ambulatory Angelia Barajas [facility] [employer] Other Start: 04-14-2021 Nursing evaluation o f patient and report Angelia Barajas [facility] Start: 05-11-2018 End: 05-12-2018 Patient encounter procedure MEAGAN HOLLAND [facility] Start: 04-26-2018 End: 04-26-2018 Patient encounter procedure MEAGAN HOLLAND [facility] Start: 04-19-2018 End: 04-20-2018 Patient encounter procedure MEAGAN GIULIANO [facility] Procedures Date Procedure Procedure Detail Performing Clinician Start: 03-10-[address] JANETTE LOPEZ Comment on above: Performed By: #### P SAD #### [facility] [address] [place] [address] Dr. Kristy Villanueva Payers Date Payer Category Payer Unknown [id number] 1960 Unknown [id number] [id number] [id number] 1960 Unknown [id number] 2.16.84 [id number] 1960 Unknown [id number] [id number] [id number] 1960 Unknown [id number] 1960 Unknown [id number] 1958 Unknown [id number] Social History Date Type Detail Facility Sex Assigned At [employer] Other Clinical Note 04-02-2022 Note Date & Type Note Facility 04-02-2022 Note PROCEDURE: XR KNEE L T 4V or > HISTORY: Pain of left knee joint ; acute left knee pain and swelling; no known injury COMPARISON: None. FINDINGS: BONES:Large ossification along the distal margin of patella; heterotopic bone formation from remote injury versus remote avulsion fracture. Prominent degenerative enthesophytes at the quadriceps and patellar tendons insertion. No acute fracture, dislocation, bone lesion. No significant joint space narrowing. SOFT TISSUES:No visible soft tissue swelling. EFFUSION:Moderate joint effusion. OTHER: Negative. IMPRESSION: 1. Moderate joint effusion. 2. No appreciable acute bone abnormality. 3. 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 No comparison studies. Electronically authenticated by: FELIPA SANTIAGO Date: 2022-04-01 22:43 [facility] Evaluation note 04-14-2021 Note Date & Type Note Facility 04-14-2021 Evaluation note Encounter Date Diagnosis Assessment Notes Apr, Contact with and (suspected) exposure to other viral communicable diseases (ICD-10 - Z20.828) Apr, Other Additional time spent conducting pre-visit phone call, screening for symptoms, instructions on social distancing, application and removal of PPE, and cleaning of examination room, equipment and supplies was preformed. Patient education given for testing methodology and results. Patient care instructions given in writting by [facility] document. [employer] Other Summary Purpose Family History No Family History Records FoundNo Family History Records FoundNo Family History Records FoundNo Family History Records FoundNo Family History Records Found Advance Directives No Advanced Directives Records FoundNo Advanced Directives Records FoundNo Advanced Directives Records FoundNo Advanced Directives Records FoundNo Advanced Directives Records Found Additional Source Comments (unrecognized sect ion and content) No Status Records FoundNo Status Records FoundNo Status Records FoundNo Status Records FoundNo Status Records Found INFORMATION SOURCE (unrecogn ized section and content) DATE CREATED AUTHOR 05/06/2018 [facility] DATE CREATED AUTHOR AUTHOR'S ORGANIZ ATION 05/29/2018 [facility] DATE CREATED AUTHOR AUTHOR'S ORGANIZ ATION 07/31/2020 [facility] DATE CREATED AUTHOR AUTHOR'S ORGANIZ ATION 04/08/2022 [facility] DATE CREATED AUTHOR AUTHOR'S ORGANIZ ATION 04/07/2023 [facility] REASON FOR VISIT (unrecogniz ed section and content) #10 BLACK JEEP, EXPOSED + AT HOME TEST FOR RECORDS PERTAINING TO PATIENTS WHO ARE OR HAVE BEEN ENROLLED IN A CHEMICAL DEPENDENCY/SUBSTANCEABUSE PROGRAM, SOME INFORMATION MAY BE OMITTED. This clinical summary was aggregated from multiple sources. Caution should be exercised in using it in the provision of clinical care. This summary normalizes information from multiple sources, and as a consequence, information in this document may materially change the coding, format and clinical context of patient data. In addition, data may be omitted in some cases. CLINICAL DECISIONS SHOULD BE BASED ON THE PRIMARY CLINICAL RECORDS. [employer] provides no warranty or guarantee of the accuracy or completeness of information in this document.
== END 2023-04-08 10:38 | disposition home or self-care (01) ==
LOC: CARD 10:37
PROVIDERS: PCP Internal Medicine
DX: E11.9 Type 2 diabetes mellitus without complications (principal); I10 Essential (primary) hypertension; Z13.220 Encounter for screening for lipoid disorders; F41.8 Other specified anxiety disorders; Z01.810 Encounter for preprocedural cardiovascular examination; S92.351K Displaced fracture of fifth metatarsal bone, right foot, subsequent encounter for fracture with nonunion
CPT/HCPCS: 36415; 80053; 80061; 82043; 82570; 83036; 84443; 85025; 93005

== ENCOUNTER 2023-04-08 10:43 | Outpatient (OUT) | payer OTHER, SELFPAY ==
--- OUTSIDE RECORDS SUMMARY | 2023-04-08 10:48 | XMS_ITS | CCD ---
Author Name Unknown Address [id number] [place] [address] Organization [facility] Care Team Providers Care Chair Inspector Name Role Phone MEAGAN HOLLAND Attending Unavailable GIULIANO, MEAGAN Referring Unavailable GIULIANO, MEAGAN Attending Unavailable GIULIANO, MEAGAN Referring Unavailable Angelia Barajas Unavailable [place], DR PRADO Consulting Unavailable [place], DR PRADO Primary Care Unavailable [place], DR PRADO Admitting Unavailable [place], DR PRADO Attending Unavailable [facility], DR FELIPA Quinones Consulting Unavailable [place], DR PRADO Primary Care Unavailable [place], DR PRADO Admitting Unavailable [place], DR SANJAY Millan Consulting Unavailable [place], DR PRADO Attending Unavailable [place], DR PRADO Consulting Unavailable [place], DR PRADO Primary Care Unavailable [place], DR PRADO Admitting Unavailable [place], DR PRADO Attending Unavailable [place], DR PRADO Consulting Unavailable SHAIKH WEEMS Attending [...] 2021 ADA RECOMMENDATION SEE BELOW Normal [facility] Comment on above: Result Comment: ADA RECOMMENDED LIMIT 4.0 - 6.0 ADA THERAPEUTIC TARGET < 7.0 ACTION SUGGESTED > 7.0 Performed By: #### A 1C #### [facility] [address] [place] [address] Dr. Kristy Villanueva Glucose [Mass/Vol] 151 mg/dL Normal [facility] Comment on above: Performed By: #### A 1C #### [facility] [address] [address] [address] Kristy Villanueva HbA1c (Bld) [Mass fraction] 6.9 % Critically high 4.5-6.2 [facility] Comment on above: Performed By: #### A 1C #### [facility] [address] [place] [address] Dr. Kristy Villanueva US JOSE DOP LEG [...] SANJAY STANFORD Date: 2022-03-22 11:45 Normal [facility] LYME DISEASE AB EIA W REFLEX on 03-12-2022 Lyme Total Antibody,EIA Negative Normal Negative [facility] Comment on above: Result Comment: [...] recommended. Performed By: #### L YMA #### [facility] [address] [place] [address] Dr. Kristy Villanueva CBC AUTO DIFFon 03-10-2022 BASO # 0.1 103/ul Normal 0.0-0.1 [facility] Comment on above: Performed By: #### C BC #### [facility] [address] [place] [address] Dr. Kristy Villanueva Basophils/100 WBC (Bld) 0.6 % Normal 0.2-2.0 [facility] Comment on above: Performed By: #### C BC #### [facility] [address] [place] [address] Dr. Kristy Villanueva EO # 0.2 103/ul Normal 0.0-0.7 [facility] Comment on above: Performed By: #### C BC #### [facility] [address] [place] [address] Dr. Kristy Villanueva Eosinophils/100 WBC (Bld) 2.4 % Normal 0.9-7.0 [facility] Comment on above: Performed By: #### C BC #### [facility] [address] [place] [address] Dr. Kristy Villanueva Erythrocyte distribution width (RBC) [Ratio] 13.1 % Normal 11.0-15.0 [facility] Comment on above: Performed By: #### C BC #### [facility] [address] [place] [address] Dr. Kristy Villanueva Hematocrit (Bld) [Volume fraction] 44.4 % Normal 42.0-54.0 [facility] Comment on above: Performed By: #### C BC #### [facility] [address] [place] [address] Dr. Kristy Villanueva Hemoglobin (Bld) [Mass/Vol] 14.6 g/dL Normal 14.0-18.0 [facility] Comment on above: Performed By: #### C BC #### [facility] [address] [place] [address] Dr. Kristy Villanueva IG # 0.04 10e3/ul Critically high 0.00-0.03 [facility] Comment on above: Performed By: #### C BC #### [facility] [address] [place] [address] Dr. Kristy Villanueva IG % 0.5 % Normal 0.0-0.5 [facility] Comment on above: Performed By: #### C BC #### [facility] [address] [place] [address] Dr. Kristy Villanueva LYMPH # 2.1 103/ul Normal 1.2-3.8 [facility] Comment on above: Performed By: #### C BC #### [facility] [address] [place] [address] Dr. Kristy Villanueva Lymphocytes/100 WBC (Bld) 26.3 % Normal 20.5-60.0 [facility] Comment on above: Performed By: #### C BC #### [facility] [address] [place] [address] Dr. Kristy Villanueva MANUAL DIFF REQ NO Normal [facility] Comment on above: Performed By: #### C BC #### [facility] [address] [place] [address] Dr. Kristy Villanueva MCH (RBC) [Entitic mass] 28.6 pg Normal 25.9-34.0 [facility] Comment on above: Performed By: #### C BC #### [facility] [address] [place] [address] Dr. Kristy Villanueva MCHC (RBC) [Mass/Vol] 32.9 g/dL Normal 29.9-35.2 [facility] Comment on above: Performed By: #### C BC #### [facility] [address] [place] [address] Dr. Kristy Villanueva MCV (RBC) [Entitic vol] 87.1 fL Normal 80.0-94.0 [facility] Comment on above: Performed By: #### C BC #### [facility] [address] [place] [address] Dr. Kristy Villanueva MONO # 0.6 103/ul Normal 0.3-0.8 [facility] Comment on above: Performed By: #### C BC #### [facility] [address] [place] [address] Dr. Kristy Villanueva Monocytes/100 WBC (Bld) 7.6 % Normal 1.7-12.0 [facility] Comment on above: Performed By: #### C BC #### [facility] [address] [place] [address] Dr. Kristy Villanueva NEUT # 5.0 103/ul Normal 1.4-6.5 [facility] Comment on above: Performed By: #### C BC #### [facility] [address] [place] [address] Dr. Kristy Villanueva Neutrophils/100 WBC (Bld) 62.6 % Normal 43.0-75.0 [facility] Comment on above: Performed By: #### C BC #### [facility] [address] [place] [address] Dr. Kristy Villanueva Platelet mean volume (Bld) [Entitic vol] 9.2 fL Critically low 9.5-13.5 [facility] Comment on above: Performed By: #### C BC #### [facility] [address] [place] [address] Dr. Kristy Villanueva PLT 347 103/ul Normal 150-450 [facility] Comment on above: Performed By: #### C BC #### [facility] [address] [address] [address] Kristy Villanueva RBC 5.10 106/ul Normal 4.70-6.10 [facility] Comment on above: Performed By: #### C BC #### [facility] [address] [address] [address] Kristy Villanueva WBC 8.0 103/ul Normal 4.0-11.0 [facility] Comment on above: Performed By: #### C BC #### [facility] [address] [place] [address] Dr. Kristy Villanueva LIPID PROFILEon 03-10-2022 CHOL-HDL RATIO NORM SEE BELOW Normal [facility] Comment on above: Result Comment: 3.3 - 4.4 LOW RISK 4.4 - 7.1 AVERAGE RISK 7.1 - 11.0 MODERATE RISK >11.0 HIGH RISK Performed By: #### C MP, LIPID #### [facility] [address] [place] [address] Dr. Kristy Villanueva Cholesterol [Mass/Vol] 219 mg/dL Critically high <=200 [facility] Comment on above: Performed By: #### C MP, LIPID #### [facility] [address] [place] [address] Dr. Kristy Villanueva Cholesterol in HDL [Mass/Vol] 56 mg/dL Normal 40-60 [facility] Comment on above: Performed By: #### C MP, LIPID #### [facility] [address] [place] [address] Dr. Kristy Villanueva Cholesterol in LDL [Mass/Vol] 138.4 mg/dL Normal [facility] Comment on above: Performed By: #### C MP, LIPID #### [facility] [address] [place] [address] Dr. Kristy Villanueva Cholesterol.total/ Cholesterol in HDL [Mass ratio] 3.9 {ratio} Normal [facility] Comment on above: Performed By: #### C MP, LIPID #### [facility] [address] [place] [address] Dr. Kristy Villanueva HDL NORMAL > or = 60 mg/dl - LO W CARDIOVASCULAR RISK <40 mg/dl - HIGH CARDIOVASCULAR RISK Normal [facility] Comment on above: Performed By: #### C MP, LIPID #### [facility] [address] [address] [address] Kristy Villanueva LDL CALC NORMAL SEE BELOW Normal [facility] Comment on above: Result Comment: <100 mg/dl OPTIMAL 100 - 129 mg/dl NEAR OR ABOVE OPTIMAL 130 - 159 mg/dl BORDERLINE HIGH 160 - 189 mg/dl HIGH >190 mg/dl VERY HIGH Performed By: #### C MP, LIPID #### [facility] [address] [address] [address] Kristy Villanueva Triglyceride [Mass/Vol] 123 mg/dL Normal <=150 [facility] Comment on above: Performed By: #### C MP, LIPID #### [facility] [address] [address] [address] Kristy Villanueva VLDL CALC 24.6 mg/dL Normal [facility] Comment on above: Performed By: #### C MP, LIPID #### [facility] [address] [address] [address] Kristy Villanueva PROF 14(COMP METB)on 022 Albumin [Mass/Vol] 3.9 g/dL Normal 3.4-5.0 [facility] Comment on above: Performed By: #### C MP, LIPID #### [facility] [address] [address] [address] Kristy Villanueva Albumin/Globulin [Mass ratio] 1.1 {ratio} Normal [facility] Comment on above: Performed By: #### C MP, LIPID #### [facility] [address] [address] [address] Kristy Villanueva ALP [Catalytic activity/Vol] 85 U/L Normal 46-116 [facility] Comment on above: Performed By: #### C MP, LIPID #### [facility] [address] [address] [address] Kristy Villanueva ALT [Catalytic activity/Vol] 26 U/L Normal 16-63 [facility] Comment on above: Performed By: #### C MP, LIPID #### [facility] [address] [address] [address] Kristy Villanueva Anion gap [Moles/Vol] 12.5 mmol/L Normal [facility] Comment on above: Performed By: #### C MP, LIPID #### [facility] [address] [address] [address] Kristy Villanueva AST [Catalytic activity/Vol] 13 U/L Critically low 15-37 [facility] Comment on above: Performed By: #### C MP, LIPID #### [facility] [address] [address] [address] Kristy Villanueva Bilirubin [Mass/Vol] 0.4 mg/dL Normal 0.2-1.0 [facility] Comment on above: Performed By: #### C MP, LIPID #### [facility] [address] [address] [address] Kristy Villanueva Calcium [Mass/Vol] 9.3 mg/dL Normal 8.5-10.1 [facility] Comment on above: Performed By: #### C MP, LIPID #### [facility] [address] [address] [address] Kristy Villanueva Chloride [Moles/Vol] 100 mmol/L Normal 98-107 [facility] Comment on above: Performed By: #### C MP, LIPID #### [facility] [address] [address] [address] Kristy Villanueva CO2 [Moles/Vol] 28.7 mmol/L Normal 21.0-32.0 [facility] Comment on above: Performed By: #### C MP, LIPID #### [facility] [address] [address] [address] Kristy Villanueva Creatinine [Mass/Vol] 1.06 mg/dL Normal 0.70-1.30 [facility] Comment on above: Performed By: #### C MP, LIPID #### [facility] [address] [address] [address] Kristy Villanueva EGFR-AF GIBRALTARIAN >60 Normal >=60 [facility] Comment on above: Performed By: #### C MP, LIPID #### [facility] [address] [address] [address] Kristy Villanueva EGFR-NON AF GIBRALTARIAN >60 Normal >=60 [facility] Comment on above: Performed By: #### C MP, LIPID #### [facility] [address] [address] [address] Kristy Villanueva Globulin (S) [Mass/Vol] 3.4 g/dL Normal [facility] Comment on above: Performed By: #### C MP, LIPID #### [facility] [address] [address] [address] Kristy Villanueva Glucose [Mass/Vol] 111 mg/dL Critically high 74-106 [facility] Comment on above: Performed By: #### C MP, LIPID #### [facility] [address] [address] [address] Kristy Villanueva Potassium [Moles/Vol] 4.2 mmol/L Normal 3.5-5.1 [facility] Comment on above: Performed By: #### C MP, LIPID #### [facility] [address] [address] [address] Kristy Villanueva Protein [Mass/Vol] 7.3 g/dL Normal 6.4-8.2 [facility] Comment on above: Performed By: #### C MP, LIPID #### [facility] [address] [address] [address] Kristy Villanueva Sodium [Moles/Vol] 137 mmol/L Normal 136-145 [facility] Comment on above: Performed By: #### C MP, LIPID #### [facility] [address] [address] [address] Kristy Villanueva Urea nitrogen [Mass/Vol] 24.0 mg/dL Critically high 7.0-18.0 [facility] Comment on above: Performed By: #### C MP, LIPID #### [facility] [address] [address] [address] Kristy Villanueva Urea nitrogen/Creatinin e [Mass ratio] 22.6 mg/mg Normal [facility] Comment on above: Performed By: #### C MP, LIPID #### [facility] [address] [place] [address] Dr. Kristy ADAM Quick Testingon 2021 Result Positive [facility] Other [facility] Documentson 07-28-2020 [facility] Documents [id number] Normal [facility] CNOVon 05-11-2018 CNOV Office Visit (UROLLN ) -- ANA CHAHAL ([id number]) 1960 M Date Time Provider Department 05/11/18 [...] Education Session: None Instruction Provided To: Patient Financial Examiner Present: not applicable Discipline: Nursing Learning Topic: [...] Meagan Holland MD Referring Provider: MEAGAN HOLLAND [[id number]] Allergies As of Date: 05/11/2018 (No Known Allergies) Date Reviewed: 05/11/2018 Reviewed by: Meagan Holland - Fully Assessed Reason for Visit: Prostate Biopsy [371] Primary Visit Diagnosis:Elevated prostate specific antigen (PSA) [R97.20] Order(s): PROSTATE BIOPSY (POC) GUKI USE ONLY [3924078] Order #: [id number]: 1 ciprofloxacin HCl (CIPRO) 500 mg tabletTake 1 tablet by mouth twice daily.Disp: 14 tabletRfl: 0 SURGICAL PATHOLOGY [5409420] Order #: [id number] Prescriptions as of 05/11/2018 Sig: LISINOPRIL 20 MG TABLET METFORMIN 500 MG TABLET CIPROFLOXACIN 500 MG TABLET Take 1 tablet by mouth twice * Problem List As Of Date 05/11/2018 Noted Resolved Elevated prostate specific antigen (PSA) [R97.2*INVALID FOR* BPH without urinary obstruction [N40.0] INVALID FOR* Frequency of micturition [R35.0] INVALID FOR* Visit Notes: >> Chayo [facility] May 11, 2018 10:04 AM Status: [...] at 6 on a 0-10 scale. Location: [facility] AMBULATORY PATIENT EDUCATION THE FOLLOWING WAS EVALUATED Motivation To Learn: Interested Family/Significant Other Support: None - Unavailable/disinterested Cognitive Ability: Alert/Oriented Method of Instruction: Written instruction - handouts The Following Influencing Factors Were Barriers To This Education Session: None The Following Physical Limitations Were Barriers To This Education Session: None Instruction Provided To: Patient Financial Examiner Present: not applicable Discipline: Nursing Learning Topic: [...] Status:Closed by MEAGAN HOLLAND MD on 05/11/18 [facility] PROCEDUREon 05-11-2018 Protein mass conc HNO ID: [id number] Author: Meagan Holland Service: (none) Author Type: [...] to the patient. Meagan Holland MD Normal [facility] PROGRESSon 05-11-2018 Protein mass conc HNO ID: [id number] Author: Meagan Holland Service: (none) Author Type: Physician Type: Progress Notes Filed: 05/11/2018 10:55 AM Note Text: . Normal [facility] SURGICAL PATHOLOGYon 019 SURGICAL PATHOLOGY Specimen originated from [facility] Specimen #: [id number] Submitting Physician: MEAGAN HOLLAND ([id number]) FINAL DIAGNOSIS 1. Prostate, right base, [...] in one cassette. Gross examination performed at [facility], [address] [place] [address] 05/11/2018 10:14:23 PM Date of Report: 05/15/2018 Date of Procedure: 05/11/2018 Date of Receipt: 05/11/2018 Submitted by: MEAGAN HOLLAND ([id number]) [facility] UROL Diagnostic interpretation performed at [facility], [address] [place] [address]. Normal [facility] PROGRESSon 05-05-2018 Protein mass conc HNO ID: [id number] Author: Meagan Holland Service: (none) Author Type: Physician Type: Progress Notes Filed: 05/05/2018 8:13 AM Note Text: for prostate bx elevated psa Good stream of urine in a 25 gm prostate frequency nocturia x 1 ? PSA 02-23-17 = 1.92 PSA 18 = 6.42 PSA 04-26-18 0.00 - 2.59 ng/mL 5.29 Normal [facility] CNPNon 04-26-2018 CNPN Telephone (AVPRAD) -- ANA CHAHAL ([id number]) 1960 M Date Time Provider Department 04/26/18 [...] with nurse and may be reached at [phone] Magy Noriega RN 04/27/2018 11:23 AM Signed Call returned to the patient. He was given the below message. All questions answered. Understanding verbalized. Call was transferred to the communications manager for his appointment to be scheduled. Pamphlet mailed to the patient. SRIKANTH White RN Psr 04/27/2018 11:43 AM Signed Patient is currently scheduled for his prostate Bx on 05/11/2018 with the provider. Natalee Contreras Psr 04/27/2018 3:13 PM Signed Called patient left message to return call to office, ext [phone], to schedule 1 week follow up with Dr Holland after his procedure on 05-11-18. Maura Roa Psr 04/28/2018 1:39 PM Signed Patient returning call to [facility] to schedule. Unable to reach ext. Please call at [phone]. Psr Delmy Morton 04/28/2018 3:11 PM Signed Called patient and left message on voice mail for patient to call back at ext [phone] to schedule one week follow up after [...] Status:Closed by FREEDOM FONSECA on 04/27/18 Normal [facility] PSA, Diagnosticon 04-26-2018 PSA, Diagnostic 5.29 ng/mL High 0.00-2.59 [facility] Comment on above: Result Comment: Eleazar back [...] [id number]. Performed By: #### P SA #### [facility] [address] [address] CNOVon 04-19-2018 CNOV Office Visit (UROLAV ) -- ANA CHAHAL ([id number]) 1960 M Date Time Provider Department 04/19/18 1:30 PM MEAGAN HOLLAND UROSTANISLAV During your visit today, we recorded the following information about you: Temperature Pulse Blood pressure Weight 98 degrees 78/minute 168/89 104.3 kg Meagan Holland MD 04/19/2018 2:01 PM Signed Ana Billy Fela [address] [facility] [address] is a 57 year old male and [...] and benefits of prostate biopsy was discussed. [facility] [place]; [facility] TRUS BIOPSY A transrectal ultrasound and [...] micturition [R35.0] Order(s):PSA/PROSTSPECAG DIAG [SQPSA] Order #: [id number] FUTURE Prescriptions as of 04/19/2018 Sig: LISINOPRIL [...] and benefits of prostate biopsy was discussed. [facility]; [facility] TRUS BIOPSY A transrectal ultrasound and [...] Status:Closed by MEAGAN HOLLAND MD on 04/19/18 [facility] PROGRESSon 04-19-2018 Protein mass conc HNO ID: [id number] Author: Meagan Holland Service: (none) Author Type: Physician Type: Progress Notes Filed: 04/19/2018 2:01 PM Note Text: Ana Chahal [address] [facility] [address] is a 57 year old male and [...] bx if abnormal Meagan Holland MD Normal [facility] Encounters Encounter Date Encounter Type Care Provider Facility Start: 04-05-2023 End: 04-05-2023 ambulatory ISBELL FAUSTINA Not Available Start: 03-24-2023 End: 03-24-2023 ambulatory IRIS PRINCE Not Available Start: 04-08-2022 Encounter for genera l adult medical examination without abnormal findings DR EVE LOPEZ [facility] Start: 03-31-2022 End: 04-01-[address] EVE LOPEZ Facility:[facility] Start: 03-31-2022 End: 04-01-2022 Encounter for general adult medical examination without abnormal findings DR EVE LOPEZ Facility:[facility] Start: 03-22-2022 End: 03-23-[address] EVE LOPEZ Facility:[facility] Start: 03-10-2022 End: 03-11-[address] EVE LOPEZ Facility:[facility] Start: 04-14-2021 End: 04-14-2021 ambulatory Angelia Barajas Other [facility] Other Start: 04-14-2021 Nursing evaluation o f patient and report Angelia Barajas [facility] Start: 05-11-2018 End: 05-12-2018 Patient encounter procedure MEAGAN HOLLAND [facility] Start: 04-26-2018 End: 04-26-2018 Patient encounter procedure MEAGAN HOLLAND [facility] Start: 04-19-2018 End: 04-20-2018 Patient encounter procedure EMAGAN GIULIANO [facility] Procedures Date Procedure Procedure Detail Performing Clinician Start: 03-10-[address] JANETTE LOPEZ Comment on above: Performed By: #### P SAD #### [facility] [address] [place] [address] Dr. Kristy Villanueva Payers Date Payer Category Payer Unknown [id number] 1960 Unknown [id number] [id number] 1960 Unknown [id number] [id number] [id number] 1960 Unknown [id number] 2.16.84 [id number] 1960 Unknown [id number] 1960 Unknown [id number] 1958 Unknown [id number]. [id number] Social History Date Type Detail Facility Sex Assigned At [facility] Other Clinical Note 04-02-2022 Note Date & [...] by: FELIPA SANTIAGO Date: 2022-04-01 22:43 [facility] Evaluation note 04-14-2021 Note Date & [...] Patient care instructions given in writting by [facility] Care At Home document. [facility] Other Summary Purpose Family History No Family [...] section and content) DATE CREATED AUTHOR 05/06/2018 [facility] DATE CREATED AUTHOR AUTHOR'S ORGANIZ ATION 05/29/2018 [facility] DATE CREATED AUTHOR AUTHOR'S ORGANIZ ATION 07/31/2020 [facility] DATE CREATED AUTHOR AUTHOR'S ORGANIZ ATION 04/08/2022 [facility] DATE CREATED AUTHOR AUTHOR'S ORGANIZ ATION 04/07/2023 [facility] dical Specialists [facility] REASON FOR VISIT (unrecogniz ed section and [...] BE BASED ON THE PRIMARY CLINICAL RECORDS. [employer] provides no warranty or guarantee of the accuracy or completeness of information in this document.
[2023-04-08 11:05] LABS: Basophils Absolute Auto 0.1 10^3/uL (0.0-0.1); Basophils Percent Auto 0.9 % (0.2-2.0); Eosinophils Absolute Auto 0.3 10^3/uL (0.0-0.7); Eosinophils Percent Auto 3.6 % (0.9-7.0); Hematocrit 46.8 % (42.0-54.0); Hemoglobin 15.5 g/dL (14.0-18.0); Immature Granulocytes Abs Auto 0.05 10^3/uL (0.00-0.03); Immature Granulocytes Pct Auto 0.5 % (0.0-0.5); Lymphocytes Absolute Auto 2.7 10^3/uL (1.2-3.8); Lymphocytes Percent Auto 29.3 % (20.5-60.0); Mean Corpuscular HGB Conc 33.1 g/dL (29.9-35.2); Mean Corpuscular Hemoglobin 29.7 pg (25.9-34.0); Mean Corpuscular Volume 89.7 fL (80.0-94.0); Mean Platelet Volume 9.3 fL (9.5-13.5); Monocytes Absolute Auto 0.7 10^3/uL (0.3-0.8); Monocytes Percent Auto 7.3 % (1.7-12.0); Neutrophils Absolute Auto 5.4 10^3/uL (1.4-6.5); Neutrophils Percent Auto 58.4 % (43.0-75.0); Platelet Count 324 10^3/uL (150-450); Red Blood Count 5.22 10^6/uL (4.70-6.10); Red Cell Distribution Width 12.7 % (11.0-15.0); White Blood Count 9.3 10^3/uL (4.0-11.0)
[2023-04-08 11:16] LABS: Microalbum Creatinine Ratio Ur 11.7 mg/g (0.0-29.9); Microalbumin Urine Random 1.5 mg/dL (<=30.0)
[2023-04-08 11:46] LABS: Estimated Average Glucose 237 mg/dL; Glycohemoglobin A1C 9.9 % (4.5-6.2)
[2023-04-08 12:43] LABS: Alanine Aminotransferase 41 U/L (16-63); Albumin Level 3.6 g/dL (3.4-5.0); Alkaline Phosphatase 96 U/L (46-116); Anion Gap 11.7; Aspartate Amino Transferase 11 U/L (15-37); BUN Creatinine Ratio 20.5; Bilirubin Total 0.5 mg/dL (0.2-1.0); Calcium 9.6 mg/dL (8.5-10.1); Carbon Dioxide 29.5 mmol/L (21.0-32.0); Chloride 101 mmol/L (98-107); Cholesterol 263 mg/dL (<=200); Estimated GFR (African America >60 (>=60); Estimated GFR (Non-African Ame >60 (>=60); Globulin 3.6 g/dL; Glucose 296 mg/dL (74-106); HDL Cholesterol 53 mg/dL (40-60); Potassium 4.2 mmol/L (3.5-5.1); Sodium 138 mmol/L (136-145); TSH W/ REFLEX FT4 1.626 (0.358-3.740); Total Protein 7.2 g/dL (6.4-8.2); Triglycerides 210 mg/dL (<=150)
== END 2023-04-08 10:44 | disposition home or self-care (01) ==
LOC: LAB 10:46
PROVIDERS: PCP Internal Medicine; Visit Provider Internal Medicine
DX: I10 Essential (primary) hypertension (principal); E11.9 Type 2 diabetes mellitus without complications; Z13.220 Encounter for screening for lipoid disorders; F41.8 Other specified anxiety disorders
CPT/HCPCS: 36415; 80053; 80061; 82043; 82570; 83036; 84443; 85025